=== PATIENT | male | born 1970 | race Caucasian/White ===

== ENCOUNTER 2017-05-25 20:03 | Emergency (ER) | payer MEDICAID ==
[~2017-05-25] VITALS: Ht 177.8 cm; Wt 73.0 kg
[2017-05-25 20:09] VITALS: BP 142/78
== END 2017-05-26 01:30 | disposition left against medical advice (07) ==
LOC: ER 20:34
DX: Z53.21 Procedure and treatment not carried out due to patient leaving prior to being seen by health care provider (principal)

== ENCOUNTER 2019-10-13 23:36 | Inpatient (IN) | payer MEDICAID ==
[~2019-10-13] VITALS: Ht 172.7 cm; Wt 98.0 kg
[2019-10-14] MEDS ORDERED: SODIUM CHLORIDE 0.9% 1,000 ML IV ONE (02:40)
[2019-10-14 03:46] LABS: BASOPHILS % 1.8 % (0.0-2.0); EOSINOPHILS % 5.5 % (0.0-5.0); HEMATOCRIT. 38.4 % (42.0-52.0); HEMOGLOBIN. 13.8 g/dL (14.0-18.0); LYMPHOCYTES % 22.1 % (20.0-50.0); MEAN CORPUSCULAR HEMOGLOBIN 36.5 pg (28.0-32.0); MEAN CORPUSCULAR VOLUME 101.8 fL (80.0-94.0); MEAN PLATELET VOLUME 10.1 fl (7.4-10.4); MONOCYTES % 8.6 % (2.0-8.0); RED BLOOD CELL COUNT 3.77 mill/uL (4.7-6.1); RED CELL DISTRIBUTION WIDTH 14.9 % (11.6-14.6)
[2019-10-14 03:54] LABS: CHLORIDE 113 mEq/L (98-107)
[2019-10-14 08:04] LABS: PLATELET 46 x1000/uL (130-400)
[2019-10-14] MEDS ORDERED: ACETAMINOPHEN 325MG TABLET PO PRN (08:30)
[2019-10-14] MEDS ORDERED: CLONIDINE 0.1MG TABLET PO PRN (08:30)
[2019-10-14] MEDS ORDERED: ONDANSETRON HCL 4MG/2ML INJ IV PRN (08:30)
[2019-10-14 10:22] LABS: HEPATITIS B SURFACE ANTIGEN NEGATIVE
[2019-10-14 10:52] LABS: HEPATITIS A AB IGM NEGATIVE (NEGATIVE)
[2019-10-14] MEDS: FUROSEMIDE 40MG/4ML VIAL IVP SCH (11:17)
[2019-10-14 13:05] LABS: *AMPHETAMINES SCREEN URINE NEGATIVE (NEGATIVE); *BARBITURATES SCREEN URINE NEGATIVE (NEGATIVE); *BENZODIAZEPINES SCREEN URINE NEGATIVE (NEGATIVE); *COCAINE SCREEN URINE NEGATIVE (NEGATIVE); CANNABINOID URINE SCREEN NEGATIVE (NEGATIVE); METHADONE URINE SCREEN NEGATIVE (NEGATIVE); OPIATES URINE SCREEN NEGATIVE (NEGATIVE); PHENCYCLIDINE URINE SCREEN NEGATIVE (NEGATIVE)
[2019-10-14 16:35] VITALS: BP 144/82
[2019-10-14] MEDS ORDERED: ARIP20TA9 MT (17:19)
[2019-10-14] MEDS ORDERED: SPIR50TA5 MT (17:25)
[2019-10-14] MEDS ORDERED: LACT10SO70 PO (17:25)
[2019-10-14] MEDS ORDERED: FURO20TA4 MT (17:27)
[2019-10-14] MEDS: LACTULOSE 20G/30ML UDC PO SCH ×2 (17:31→21:13)
[2019-10-14] MEDS ORDERED: MULT-1116 PO (18:13)
[2019-10-14] MEDS ORDERED: VITA-137 MT (18:13)
[2019-10-14] MEDS ORDERED: OMEP20CA5 MT (18:14)
[2019-10-14] MEDS ORDERED: CETI10TA10 MT (18:15)
[2019-10-14 20:00] VITALS: BP_SYST 149; BP_SYST 162; BP_DIAS 87; BP_DIAS 92
[2019-10-15] VITALS: BP 137/74
[2019-10-15 04:00] VITALS: BP 109/52
[2019-10-15] MEDS: LACTULOSE 20G/30ML UDC PO SCH ×2 (05:20→14:52)
[2019-10-15 07:10] LABS: CHLORIDE 112 mEq/L (98-107)
[2019-10-15 07:41] LABS: EOSINOPHILS % 8.2 % (0.0-5.0); LYMPHOCYTES % 21.5 % (20.0-50.0); MEAN CORPUSCULAR HEMOGLOBIN 36.4 pg (28.0-32.0); MEAN CORPUSCULAR VOLUME 100.6 fL (80.0-94.0); MEAN PLATELET VOLUME 9.8 fl (7.4-10.4); MONOCYTES % 8.1 % (2.0-8.0); NEUTROPHILS % 61.2 % (40.0-76.0); RED BLOOD CELL COUNT 3.57 mill/uL (4.7-6.1); RED CELL DISTRIBUTION WIDTH 14.7 % (11.6-14.6)
[2019-10-15 08:00] VITALS: BP 125/64
[2019-10-15] MEDS ORDERED: SPIRONOLACTONE 50MG TABLET PO SCH (09:00)
[2019-10-15] MEDS: FUROSEMIDE 40MG/4ML VIAL IVP SCH (09:51)
[2019-10-15 10:44] LABS: PLATELET ESTIMATE MARKEDLY DECREASED
[2019-10-15 10:45] LABS: PLATELET 45 x1000/uL (130-400)
[2019-10-15 12:00] VITALS: BP_SYST 119; BP_SYST 127; BP_SYST 142; BP_DIAS 59; BP_DIAS 70; BP_DIAS 79
[2019-10-15 15:26] VITALS: BP 142/79
[2019-10-15 16:00] VITALS: BP 128/69
== END 2019-10-15 17:22 | disposition short-term general hospital (02) | DRG 279 ==
LOC: ER 23:36 → 6WST 10-14 06:56 → EDBEDREQ 10-14 06:57 → EDBEDREQTM 10-14 06:57 → ENRESERV 10-14 14:56
PROVIDERS: ADMIT Internal Medicine; ATTEND Internal Medicine
DX: K72.90 Hepatic failure, unspecified without coma (principal); D69.6 Thrombocytopenia, unspecified; E87.8 Other disorders of electrolyte and fluid balance, not elsewhere classified; E44.1 Mild protein-calorie malnutrition; F20.9 Schizophrenia, unspecified; G90.8 Other disorders of autonomic nervous system; K70.30 Alcoholic cirrhosis of liver without ascites; E78.00 Pure hypercholesterolemia, unspecified; E78.5 Hyperlipidemia, unspecified; H54.7 Unspecified visual loss; K42.9 Umbilical hernia without obstruction or gangrene; F10.20 Alcohol dependence, uncomplicated; R25.1 Tremor, unspecified; R04.0 Epistaxis; Z79.899 Other long term (current) drug therapy; Z68.32 Body mass index [BMI] 32.0-32.9, adult
CPT/HCPCS: 36415; 71045; 76705; 80048; 80053; 80305; 80320; 82140; 83036; 83880; 84484; 85025; 86705; 86709; 86803; 87340; 93005; 93306; 93970; 97162; 99285; J1940; J7030; G0480